=== PATIENT | female | born 1980 | race African-American/Black ===

== ENCOUNTER 2017-02-14 12:39 | Emergency (ER) | payer OTHER ==
[~2017-02-14] VITALS: Ht 167.6 cm; Wt 66.5 kg
[2017-02-14 12:45] VITALS: Ht 167.6 cm; Wt 66.5 kg
[2017-02-14 15:24] LABS: ADD UMIC YES; UR BILIRUBIN (Dip) NEGATIVE (NEGATIVE); UR BLOOD (Dip) 1+ (NEGATIVE); UR CLARITY CLEAR (CLEAR); UR COLOR LT. YELLOW (YELLOW); UR GLUCOSE (Dip) NEGATIVE (NEGATIVE); UR KETONES (Dip) NEGATIVE (NEGATIVE); UR LEUKOCYTE ESTERASE (Dip) NEGATIVE (NEGATIVE); UR NITRITE (Dip) NEGATIVE (NEGATIVE); UR TOTAL PROTEIN (Dip) NEGATIVE (NEGATIVE); UR UROBILINOGEN (Dip) 0.2 E.U./dL (0.1-1.0)
[2017-02-14 15:37] LABS: ADD SCAN DIFF NO
[2017-02-14 15:42] LABS: UR SQUAMOUS EPITHELIAL CELL MODERATE /HPF (FEW); URINE RBCS 0-2 /HPF (0)
--- NOTE | 2017-02-14 15:56 | RADRPT ---
PROCEDURE: Chest x-ray CLINICAL INDICATION: Abdominal pain TECHNIQUE: Chest single view COMPARISON: None FINDINGS: The heart is normal in size. The pulmonary vessels are normal in caliber. The lungs are clear. Th e costophrenic angles are sharp. The visualized bony thorax is unremarkable. IMPRESSION: No acute cardiopulmonary disease. RPTAT: HH .Dash Quintanilla MD, Date Time Electronically viewed and signed by .Dash Quintanilla MD, MD on 02/14/2017 15:55 .W/
[2017-02-14 16:01] LABS: ALBUMIN 4.8 g/dl (3.3-4.9); ALBUMIN/GLOBULIN RATIO 1.6; CALCIUM 8.9 mg/dl (8.4-10.2); CREATININE 0.74 mg/dl (0.44-1.00); POTASSIUM 4.8 mmol/L (3.5-5.1); TOTAL PROTEIN 7.8 g/dl (6.1-8.1)
[2017-02-14 16:38] LABS: EOSINOPHILS # 0.1 10^3/ul (0.0-0.5); EOSINOPHILS % 2.4 % (0.0-7.0); HEMATOCRIT 35.4 % (37.0-47.0); HEMOGLOBIN 11.6 g/dl (12.0-16.0); LYMPHOCYTES # 1.4 10^3/ul (0.8-2.9); LYMPHOCYTES % 37.3 % (15.0-51.0); MEAN CORPUSCULAR HEMOGLOBIN 29.9 pg (29.0-33.0); MEAN CORPUSCULAR HGB CONC 32.8 g/dl (32.0-37.0); MEAN CORPUSCULAR VOLUME 91.2 fl (82.0-101.0); MEAN PLATELET VOLUME 10.5 fl (7.4-10.4); MONOCYTE # 0.4 10^3/ul (0.3-0.9); MONOCYTES % 11.3 % (0.0-11.0); NEUTROPHIL # 1.8 10^3/ul (1.6-7.5); NEUTROPHILS % 47.7 % (39.0-77.0); PLATELET COUNT 245 10^3/UL (140-415); RED BLOOD COUNT 3.88 10^6/ul (4.20-5.40); RED CELL DISTRIBUTION WIDTH 15.4 % (11.5-14.5); WHITE BLOOD COUNT 3.8 10^3/ul (4.8-10.8)
[2017-02-14] MEDS ORDERED: SOD CHLORIDE 0.9% 100 ML ONE (17:23)
[2017-02-14] MEDS ORDERED: IOHEXOL 300MG/ML 150 ML BTL ONE (17:23)
[2017-02-14] MEDS ORDERED: IBUP-1542 PO (17:57)
[2017-02-14] MEDS ORDERED: HYDR-906 PO (17:57)
--- NOTE | 2017-02-14 17:57 | ERD ---
ER Documentation Chief Complaint Date/Time DATE: 02/14/17 TIME: 17:50 Chief Complaint has ap hx of hernia and cp that feels like pressure hx of anxiety (ROSE ROMANO) HPI This is a 36-year-old female presents to the ER with abdominal pain that is sharp in quality located in the mid abdomen. Patient has had this pain over the last 2 days. She denies nausea vomiting or diarrhea. She does admit to a squeezing chest pain with a little bit of shortness of breath. She denies any recent travel she denies any leg pain or leg swelling. She does not have any cough or cold symptoms. Patient denies any urinary frequency or dysuria. (ROSE ORMANO) ROS All12 point review of systems was done, all negative except per HPI. (ROSE ROMANO) Medications Home Meds Active Scripts Ibuprofen* (Motrin*) 600 Mg Tab, 600 MG PO Q6, #30 TAB Prov:ROSE ROMANO 02/14/17 Hydrocodone/Acetaminophen (Daykin 5-325 Tablet) 1 Each Tablet, 1 TAB PO Q6H Y for PAIN, #15 TAB Prov:ROSE ROMANO 02/14/17 PMhx/Soc Medical and Surgical Hx: pt denies Medical Hx, pt denies Surgical Hx Hx Alcohol Use: No Hx Tobacco Use: No Smoking Status: Never smoker (ROSE ROMANO) Physical Exam Vitals Vital Signs Date Time Temp Pulse Resp B/P Pulse Ox O2 Delivery O2 Flow Rate FiO2 02/14/17 12:45 98.3 86 18 134/83 99 (EMILIA WESTON PA-C) Physical Exam GENERAL: The patient is well developed and appropriate for usual state of health , in no apparent distress. HEENT: Atraumatic. CHEST: Clear to auscultation bilaterally. There are no rales, wheezes or rhonchi. HEART: Regular rate and rhythm. No murmurs, clicks, rubs or gallops. ABDOMEN: Soft, nontender and nondistended. Good bowel sounds. No rebound or guarding. No gross peritonitis. No gross organomegaly or masses. No Beatty sign or McBurney point tenderness. BACK: No midline or flank tenderness. NEURO: Alert and oriented. SKIN: The skin is warm and dry. (ROSE ROMANO) Result Diagram: 02/14/17 1625 02/14/17 1524 Results 24 hrs Laboratory Tests Test 02/14/17 15:06 02/14/17 15:24 02/14/17 16:25 Urine Color LT. YELLOW Urine Clarity CLEAR Urine pH Urine Specific [place] Urine Ketones NEGATIVE Urine Nitrite NEGATIVE Urine Bilirubin NEGATIVE Urine Urobilinogen 0.2 E.U./dL Urine Leukocyte Esterase NEGATIVE Urine Microscopic RBC 0-2/HPF Urine Microscopic WBC 0-2/HPF Urine Squamous Epithelial Cells MODERATE/HPF Urine Hemoglobin 1+ Urine Glucose NEGATIVE% Urine Total Protein NEGATIVE Urine Test NEGATIVE Sodium Level 137mmol/L Potassium Level 4.8mmol/L Chloride Level 104mmol/L Carbon Dioxide Level 25mmol/L Anion Gap 13 Blood Urea Nitrogen 12mg/dl Creatinine 0.74mg/dl Glucose Level 78mg/dl Calcium Level 8.9mg/dl Total Bilirubin 0.0mg/dl Direct Bilirubin 0.00mg/dl Indirect Bilirubin 0.0mg/dl Aspartate Amino Transf (AST/SGOT) 49IU/L Alanine Aminotransferase (ALT/SGPT) 51IU/L Alkaline Phosphatase 56IU/L Total Protein 7.8g/dl Albumin 4.8g/dl Globulin 3.00g/dl Albumin/Globulin Ratio 1.60 Lipase 128U/L White Blood Count 3.810^3/ul Red Blood Count 3.8810^6/ul Hemoglobin 11.6g/dl Hematocrit 35.4% Mean Corpuscular Volume 91.2fl Mean Corpuscular Hemoglobin 29.9pg Mean Corpuscular Hemoglobin Concent 32.8g/dl Red Cell Distribution Width 15.4% Platelet Count 63670^3/UL Mean Platelet Volume 10.5fl Neutrophils % 47.7% Lymphocytes % 37.3% Monocytes % 11.3% Eosinophils % 2.4% Basophils % 1.0% Nucleated Red Blood Cells % 0.0/100WBC Neutrophils # 1.810^3/ul Lymphocytes # 1.410^3/ul Monocytes # 0.410^3/ul Eosinophils # 0.110^3/ul Basophils # 0.010^3/ul Nucleated Red Blood Cells # 0.010^3/ul Current Medications Medications (Trade) Dose Ordered Sig/Jake Route PRN Reason Start Time Stop Time Status Last Admin Dose Admin IV Flush 10 ml 10 ml STK-MED ONCE .ROUTE 02/14/17 17:23 02/14/17 17:24 DC 02/14/17 18:11 Sodium Chloride (NS) 100 ml @ ud STK-MED ONCE .ROUTE 02/14/17 17:23 02/14/17 17:24 DC Iohexol (Omnipaque 300mg/ ml) 150 ml STK-MED ONCE .ROUTE 02/14/17 17:23 02/14/17 17:24 DC 02/14/17 18:11 DIAGNOSTIC IMAGING REPORT Patient: IZAIAH ECHEVERRIA : 1980 Age: 36 Sex: F MR #: [id number] DOS: 02/14/17 1453 Ordering MD: ROSE ROMANO PA-C Location: [facility] Room/Bed: PROCEDURE: CT abdomen and pelvis with contrast. CLINICAL INDICATION: Mid abdominal pain. Hernia TECHNIQUE: CT scan of the abdomen and pelvis with contrast was performed. Coronal and sagittal images were also reformatted. 37 cc Omnipaque-300 intravenous contrast was administered without complication. Total exam CTDIvol = 8.08 mGy and DLP = 403.71 mGy-cm. COMPARISON: None available. FINDINGS: Visualized lower thorax: The lung bases are clear. There is no evidence for pleural effusion. Liver, gallbladder, pancreas and spleen: Mild hepatomegaly of 20 cm is present with low attenuation suggesting slight hepatic steatosis, the liver contour is preserved. There is no evidence for liver mass or ductal dilatation. The gallbladder is unremarkable. No common bile duct dilatation is evident. The pancreas is normal. The spleen is normal, not enlarged. Adrenal glands and genitourinary system: The adrenal glands are normal bilaterally. The kidneys are normal in size, contour and attenuation with no evidence for masses, calculi or hydronephrosis. Symmetric enhancement of the kidneys is present without evidence of pyelonephritis . The ureters are unremarkable. The urinary bladder shows no abnormality. Enlarged lobulated uterus most consistent with leiomyomatous changes. There is no evidence of ovarian or adnexal mass. A trace amount of free fluid in the posterior left cul -de-sac is probably physiologic. Gastrointestinal system: The stomach, small bowel and large intestine are normal in caliber. There is no evidence of obstruction, ileus or inflammation. The appendix and surrounding fat are normal. A normal amount of fecal debris is present within the colon and there is no wall thickening to suggest colitis. Peritoneum, retroperitoneum, vessels and lymph nodes: The abdominal aorta is normal in caliber. There is no evidence for atherosclerotic calcification. Inferior vena cava is normal in caliber. There is no evidence for adenopathy. The peritoneal cavity is normal with no evidence for ascites. A fat containing supraumbilical ventral hernia is estimated at 3 cm in greatest dimension the defect in the anterior abdominal wall measured at 7 mm in transverse dimension. There is no inflammation or fluid within the hernia sac (series 3 images 83-88 ). No pneumoperitoneum is present Osseous structures and musculoskeletal system: There is no evidence for acute osseous abnormality or muscular pathology. No subcutaneous abnormalities are present. RPTAT:HJJR IMPRESSION: 1. A fat-containing supraumbilical hernia is estimated at 3 cm in greatest dimension the defect in the anterior abdominal wall 7 mm per without evidence of fluid or inflammation in the hernia sac. 2. Mild hepatomegaly and hepatic steatosis. 3. Enlarged fibroid uterus. Physician Madelyn Date Time Electronically viewed and signed by Physician Madelyn on 02/14/2017 18:51 JR/ CC: ROSE ROMANO (EMILIA WESTON PA-C) Procedures/MDM Differential Diagnosis: GERD, gastritis, peptic ulcer disease, pancreatitis, cholecystitis, choledocholithiasis, biliary colic, cholangitis, [id number] , ACS/IL, Pnuemonia. EKG was done [address] elevation no T wave inversion. She is blood work is normal with no evidence of leukocytosis or electrolyte abnormality. There is no evidence of urinary tract infections. No evidence of pneumonia or other intrathoracic abnormality. Suspicion for pulmonary embolism is low patient is not have any perc criteria. I am awaiting for CT results. (ROSE ROMANO) Medical decision makin-year-old female comes in with upper abdominal pain, this patient was signed out to me by Rose Romano. The CT abdomen and pelvis does show a fat-containing hernia, otherwise unremarkable. There are no acute findings, surgical findings. Based on her presentation her symptoms are likely related to anxiety. Suspicion for acute coronary syndrome, dissection, pulmonary embolus, pancreatitis and among others are part of my differential diagnosis however unlikely. (EMILIA WESTON PA-C) Departure Diagnosis: Primary Impression: Abdominal pain Condition: Stable ROSE ROMANO Feb 14, 2017 17:57 EMILIA WESTON PA-C Feb 14, 2017 19:13
--- NOTE | 2017-02-14 18:51 | RADRPT ---
PROCEDURE: CT abdomen and pelvis with contrast. CLINICAL INDICATION: Mid abdominal pain. Hernia TECHNIQUE: CT scan of the abdomen and pelvis with contrast was performed. Coronal and sagittal im ages were also reformatted. 37 cc Omnipaque-300 intravenous contrast was administered without compl ication. Total exam CTDIvol = 8.08 mGy and DLP = 403.71 mGy-cm. COMPARISON: None available. FINDINGS: Visualized lower thorax: The lung bases are clear. There is no evidence for pleural effusion. Liver, gallbladder, pancreas and spleen: Mild hepatomegaly of 20 cm is present with low attenuation suggesting slight hepatic steatosis, the liver contour is preserved. There is no evidence for live r mass or ductal dilatation. The gallbladder is unremarkable. No common bile duct dilatation is ev ident. The pancreas is normal. The spleen is normal, not enlarged. Adrenal glands and genitourinary system: The adrenal glands are normal bilaterally. The kidneys ar e normal in size, contour and attenuation with no evidence for masses, calculi or hydronephrosis. Sy mmetric enhancement of the kidneys is present without evidence of pyelonephritis . The ureters are unremarkable. The urinary bladder shows no abnormality. Enlarged lobulated uterus most consistent with leiomyomatous changes. There is no evidence of ovarian or adnexal mass. A trace amount of adán e fluid in the posterior left cul-de-sac is probably physiologic. Gastrointestinal system: The stomach, small bowel and large intestine are normal in caliber. There is no evidence of obstruction, ileus or inflammation. The appendix and surrounding fat are normal. A normal amount of fecal debris is present within the colon and there is no wall thickening to sugg est colitis. Peritoneum, retroperitoneum, vessels and lymph nodes: The abdominal aorta is normal in caliber. Th ere is no evidence for atherosclerotic calcification. Inferior vena cava is normal in caliber. The re is no evidence for adenopathy. The peritoneal cavity is normal with no evidence for ascites. A f at containing supraumbilical ventral hernia is estimated at 3 cm in greatest dimension the defect in the anterior abdominal wall measured at 7 mm in transverse dimension. There is no inflammation or fluid within the hernia sac (series 3 images 83-88). No pneumoperitoneum is present Osseous structures and musculoskeletal system: There is no evidence for acute osseous abnormality o r muscular pathology. No subcutaneous abnormalities are present. RPTAT:HJJR IMPRESSION: 1. A fat-containing supraumbilical hernia is estimated at 3 cm in greatest dimension the defect in t he anterior abdominal wall 7 mm per without evidence of fluid or inflammation in the hernia sac. 2. Mild hepatomegaly and hepatic steatosis. 3. Enlarged fibroid uterus. Physician Madelyn Date Time Electronically viewed and signed by Marcus Drew Physician on 02/14/2017 18:51 JR/
[2017-02-14 19:24] VITALS: BP 154/72; PULSE 75; RESP 18
== END 2017-02-14 19:26 | disposition home or self-care (01) ==
LOC: FTE 12:39
DX: R10.9 Unspecified abdominal pain (principal); R07.9 Chest pain, unspecified
CPT/HCPCS: 71010; 74177; 80053; 81001; 83690; 84703; 85025; 93005; Q9967; Z7502; Z7610

== ENCOUNTER 2017-11-07 04:13 | Emergency (ER) | END 2017-11-07 08:21 | disposition home or self-care (01) ==